=== PATIENT | female | born 1985 | race Caucasian/White ===

== ENCOUNTER 2025-06-14 04:58 | Emergency (ER) | payer MEDICAID ==
[~2025-06-14] VITALS: Ht 162.6 cm; Wt 72.7 kg
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
[2025-06-14 06:13] LABS: LEUKOCYTE ESTERASE ,URINE NEGATIVE (Neg); OCCULT BLOOD,URINE NEGATIVE (Neg)
[2025-06-14 06:19] LABS: URINE HCG NEGATIVE (NEG)
[2025-06-14 06:22] LABS: NITRITES, URINE NEGATIVE (Neg)
--- NOTE | 2025-06-14 06:22 | RADIOLOGY REPORT ---
MEDICAL RECORDS NUMBER: [id number] PROCEDURE: DI CHEST,SINGLE VIEW DATE: 06/14/2025 05:49 AM HISTORY: chronic sob Views:1 COMPARISON: None FINDINGS/IMPRESSION: Lungs: The lungs are clear. Mediastinum: Mediastinal structures appear unremarkable... Skeletal: The skeletal structures appear unremarkable.
[2025-06-14 06:24] LABS: UA COLLECTION TYPE VOIDED
[2025-06-14] MEDS: OLANZapine 5mg rapidly disint. tablet PO ONE (07:03)
[2025-06-14 07:04] LABS: URINE AMPHETAMINE SCREEN NEGATIVE (Neg); URINE BARBITUATE SCREEN NEGATIVE (Neg); URINE BENZODIAZEPINES SCREEN NEGATIVE (Neg); URINE CANNABINOID SCREEN POSITIVE (Neg); URINE COCAINE SCREEN POSITIVE (Neg); URINE METHADONE SCREEN NEGATIVE (Neg); URINE OPIATE SCREEN POSITIVE (Neg); URINE PHENCYCLIDINE SCREEN NEGATIVE (Neg)
[2025-06-14] MEDS: ketorolac trometh 30MG/ML vial 30 MG/ML VIAL IM ONE (07:07)
[2025-06-14 07:54] LABS: MEAN PLATELET VOLUME 7.1 FL (7.4-10.4); RED CELL DISTRIBUTION WIDTH 12.7 % (11.5-14.5)
[2025-06-14 08:51] LABS: CREATININE 0.71 MG/DL (0.40-0.90); ETHANOL 33 MG/DL (<10); PRO BRAIN NATRIURETIC PEPTIDE 134 PG/ML (0-125); TOTAL CARBON DIOXIDE 25.7 MMOL/L (24-32); eCRCL 93 ML/MIN; eGFR > 90 ML/MIN
[2025-06-15 05:41] VITALS: BP 137/88; PULSE 80; RESP 19; TEMP 98; O2SAT 100
== END 2025-06-15 11:17 | disposition home or self-care (01) ==
LOC: ER 04:59 → EEVIPCON 04:59 → ER 06-15 11:17
DX: F29 Unspecified psychosis not due to a substance or known physiological condition (principal); Z79.899 Other long term (current) drug therapy; Z20.822 Contact with and (suspected) exposure to COVID-19
CPT/HCPCS: 36415; 71045; 80048; 80305; 80320; 80329; 81003; 81025; 83880; 84443; 84484; 85025; 87811; 96372; 99284; J1885